=== PATIENT | female | born 1940 | race African-American/Black ===

== ENCOUNTER → 2020-06-08 | Outpatient (CLI) | payer OTHER ==
[~2020-06-08] VITALS: Ht 160 cm; Wt 59.0 kg
[~2020-06-08] MED LIST: DAYPRO600 MG PO; DUREZOL5 ML OTIC; FOSAMAX 70 MG T70 MG PO; LYRICA 50 MG50 MG PO; PREDNISONE 5 MG5 M1 PO; SIMVASTATIN PO; TOPROL XL25 MG PO
[2020-06-08 11:21] VITALS: BP 142/70
--- NOTE | 2020-06-09 07:43 | NUR ---
Pain Clinic Assessment: 1. History of Osteoarthritis: Not Applicable History of Rheumatoid Arthritis: Not Applicable 2. Height: 5 ft. 3 in. 160.0 cm. Weight: 130.0 lb. oz. 58.968 kg. Patient's BMI: 23.0 3. Vital Signs: BP: 142/70 Pulse: 80 Resp: 14 Temp: 02 Sat: 100 ECG Mon: 4. Pain Intensity: 8 5. Fall Risk: Dizziness: N Needs help standing or walking: Y Fallen in the last 3 months: Y Fall risk comments: 6. Patient on Blood Thinner: None 7. History of Hypertension: Y 8. Opioid Therapy greater than 6 weeks: N Opiate Contract Signed: 9. Risk Assessment Tool Provided: 10. Functional Assessment Tool: 11. Recreational Drug Use: Never Drug Type: Tobacco Use: Never Smoker Tobacco Type: Amount or Packs/day: How Many Years: Alcohol Use: No Frequency: Quant:
--- NOTE | 2020-06-10 08:06 | HPC ---
[facility] [place] [address] PAIN MANAGEMENT CONSULTATION Name: COTY CERDA Room #: REG [facility] Eva#: [id number] Admission: 06/08/20 Attend Phys: Ian Zuniga DO Discharge: Date of : 42 Report #: [id number] THIS REPORT FOR: cc: MARQUITA RUELAS Physician not on staff Ian Zuniga DO ~ DATE OF SERVICE: 06/08/2020 CHIEF COMPLAINT: Postherpetic neuralgia. HISTORY OF PRESENT ILLNESS: As you know, the patient is a 79-year-old female who reports acute onset of pain involving the left forehead and preauricular area that began 02/03/2020. The patient states that she had undergone treatment for visual issue and within days, she began experiencing increasing pain. She sought evaluation, diagnosed with herpes zoster. Unfortunately, the patient did not receive retroviral therapy in the form of acyclovir and famciclovir the standard of care for the treatment of this issue. The patient does report today she has no recollection of receiving any of these type of medications. She had sought evaluation through her primary care physician who provided her Daypro for treatment. She continued to experience symptoms of pain that progressed. She states pain is mainly exacerbated with stress and at night specifically. The patient did sustain a fall about 3 months later that she believes "fractured her skull" The patient is a very poor historian. She does not have good recollection of the medication she is on nor does she have any idea of the reason for treatment of different medical conditions. She has been referred to our service, as she is not seeing improvement with her postherpetic neuralgia for initiation of treatment and suggestions for therapy. The patient reports today her pain is periodic. She describes pain as shooting, aching, gnawing and tender. She places current pain score 6/10, daily average at 8/10, worst pain has been 10/10. The patient states pain is exacerbated with increasing stress and lying down at night. Pain is improved with nothing to date. She has been referred to our clinic to discuss treatment for postherpetic neuralgia. PAST MEDICAL HISTORY: 1. Hypertension. 2. Chronic liver disease. 3. Dyslipidemia. 4. Osteoporosis. PAST SURGICAL HISTORY: 1. Appendectomy. 2. Bowel reconstruction. 3. Hysterectomy. [address] [address] PAIN MANAGEMENT CONSULTATION Name: COTY CERDA [facility] [id number] Admission: 06/08/20 Attend Phys: Ian Zuniga DO Discharge: Date of : 42 Report #: [id number] SOCIAL HISTORY: The patient reports herself as a nonsmoker. Denies IV or illicit drug use. Denies any chronic alcohol use. She is retired. She is not working. She is accompanied by her present in room today, who is providing the vast majority of the patient's history. She is not in litigation in regards to pain. REVIEW OF SYSTEMS: Positive for cataracts, left forehead and preauricular pain secondary to postherpetic neuralgia. All other review of systems negative per 12-point review of systems other than those listed in history of present illness. Pain impact score 44 of 70 indicating [id number] interference of daily activities secondary to pain. ALLERGIES: No known drug allergies. CURRENT MEDICATIONS: Simvastatin 20 mg once a day, Durezol 1 drop each eye per day, prednisone 5 mg once a day, alendronate 70 mg once a week, metoprolol 25 mg once a day, Daypro 600 mg once a day. IMAGING: No imaging available. PQRS: The patient has known arthritic changes of the bilateral shoulders, bilateral hands, lumbar spine, bilateral hips and knees. No rheumatoid arthritis. She is placing pain intensity at 8/10. She is a fall risk and has had multiple falls in the last 3 months. She is not utilizing any type of ambulatory device. She is not on blood thinners, but is treated for hypertension. She is not on chronic opioids, has a low opioid addiction potential based on our assessment tool. Pain impact is 44/70, [id number] interference of daily activities secondary to pain. PHYSICAL EXAMINATION: VITAL SIGNS: Blood pressure 142/70, pulse 80, respiratory rate 14 and unlabored. The patient is 100% on room air. Height 5 feet 3 inches tall, weight 130 pounds, BMI calculated 23.0. GENERAL: Well-developed, well-nourished, well-hydrated 79-year-old female, appears older than stated age, placing current pain score 8/10. HEENT: Normocephalic, atraumatic. Pupils are round and responsive. MUSCULOSKELETAL: There are changes within the skin color and texture of the eyelid on the left when compared to the right. There are skin color changes consistent with postherpetic neuralgia involving the left forehead to the midline and towards the preauricular area. There are no postauricular findings. There is allodynia and hyperalgesia to the area. The patient is wearing a mask in compliance with COVID-19 regulations. LUNGS: Clear, no wheeze, rhonchi or rales. CARDIOVASCULAR: Regular. No appreciable gallop, no rub. [address] [address] PAIN MANAGEMENT CONSULTATION Name: COTY CERDA Room #: REG [facility]#: [id number] Admission: 06/08/20 Attend Phys: Ian Zuniga DO Discharge: Date of : 42 Report #: [id number] ABDOMEN: Soft, nontender. EXTREMITIES: Show no clubbing, no cyanosis, no edema. ASSESSMENT: Postherpetic neuralgia. PLAN: 1. Based on today's physical exam and history the patient has provided, the description the patient uses in regards to pain as well as the location of symptoms, it would appear the patient is suffering from postherpetic neuralgia. The patient is showing no signs of intraocular herpetic changes, though she is having changes in skin color, texture overlying the left forehead and preauricular area, all lesions appear to be healed well and are of chronic nature. She continues to experience allodynia and hyperalgesia over the area. We discussed with the patient the treatment that she has received today. It appears the patient according to her recollection was diagnosed with herpes zoster, but did not receive any treatment in the form of antiretrovirals based on the patient's recollection. The patient continues to experience postherpetic neuralgia, which has been present since the patient's outbreak. She has been referred to our service to discuss the treatment options for postherpetic neuralgia, provide suggestions and treatment and return her care to her jamb cutter and primary care physician. 2. We discussed with the patient the treatment options for postherpetic neuralgia typically involve medications such as amitriptyline, nortriptyline, Cymbalta, Lyrica, gabapentin as typical treatment course. There has been some anecdotal evidence in regards to the sodium channel blockers being helpful including oxcarbazepine and carbamazepine, though these have fairly significant potential side effects and are not necessarily recommended for initial treatment. After a discussion of treatment options, we chose to begin the patient on a neuropathic medication to assist in pain control as well as adding a topical agent to her list of treatment. 3. The patient was provided prescription of Lyrica 50 mg dose, she will begin 1 tab p.o. at bedtime for 7 nights and then continue the medication as directed. If she is not noticing any side effects within those 7 days and no improvement in symptoms, escalate dose to 100 mg p.o. at bedtime. If again no improvement in symptoms, no side effects, then continue escalation by adding 1 tab in the morning, continuing 2 tablets at night for 7 days, then increasing to 100 mg in the morning and 100 mg at night. The patient was advised at any time during this titration she notes improvement in symptoms or stabilize at that dose, no further escalation. The patient was given a prescription #120, Lyrica tablets to make this titration successful. She will watch for side effects of sleepiness, disorientation, confusion, mental slowing. If she notes side effects, contact our clinic for adjustments in treatment. 4. The patient will obtain [id number] Recticare, a local anesthetic in cream form. This could be applied topically to the zoster area up to 3 times a day. I have advised the patient not to apply any of the Recticare to the eyelid itself as it may enter the eye and cause some issues. She can use this again up [address] [address] PAIN MANAGEMENT CONSULTATION Name: COTY CERDA Room #: [facility] [id number] Admission: 06/08/20 Attend Phys: Ian Zuniga DO Discharge: Date of : 42 Report #: [id number] to 3 times a day. It is a 5% local anesthetic in the form of lidocaine, which should provide good local analgesic benefit. 5. We plan to see the patient back in followup visit in 1 month. At that time, we will make any further adjustments in medication management, returning her care to her PCP to continue the treatment. 6. We wish to thank referring physician for the opportunity to see this patient in consultation. We will keep you apprised her response to treatment as we address postherpetic neuralgia involving the left forehead and preauricular area on the left. Again, we wish to thank you for the opportunity to see this patient in consultation. <ELECTRONICALLY SIGNED> By: Ian Zuniga DO 06/10/20 [id number] Ian Zuniga DO /nt
== END ==
LOC: EDBD 06:58 → PAIN 06:58
PROVIDERS: ATTEND Anesthesiology Pain Medicine
DX: B02.29 Other postherpetic nervous system involvement (principal)